=== PATIENT | female | born 2005 | race African-American/Black ===

== ENCOUNTER 2024-07-21 15:56 | Emergency (ER) | payer SELFPAY ==
[~2024-07-21] VITALS: Ht 167.6 cm; Wt 59.0 kg
[2024-07-21 17:05] VITALS: O2SAT 100
[2024-07-21] MEDS ORDERED: ACET-2708 MT (19:56)
[2024-07-21] MEDS ORDERED: ONDA4TAB50 MT (19:56)
[2024-07-21] MEDS ORDERED: NAPR-679 MT (19:56)
[2024-07-21] MEDS: ACETAMINOPHEN 325MG TABLET PO ONE (20:04)
[2024-07-21] MEDS: KETOROLAC 30MG/ML VIAL IM ONE (20:04)
[2024-07-21] MEDS: ONDANSETRON 4MG ODT PO ONE (20:05)
[2024-07-21 20:13] VITALS: BP 120/62; PULSE 90; RESP 18; TEMP 37.39188; O2SAT 100
== END 2024-07-21 21:00 | disposition home or self-care (01) ==
LOC: ER 15:56
DX: B34.9 Viral infection, unspecified (principal); R05.9 Cough, unspecified; Z79.1 Long term (current) use of non-steroidal anti-inflammatories (NSAID); Z20.822 Contact with and (suspected) exposure to COVID-19
CPT/HCPCS: 99285; 71045; 87426; 87804 ×2; 93005; Q0162; J1885